=== PATIENT | male | born 1940 | race Caucasian/White ===

== ENCOUNTER 2024-05-11 21:57 | Inpatient (IN) | payer OTHER, SELFPAY ==
[2024-05-11] VITALS (7 sets, daily range): BP systolic 90–179; BP diastolic 74–93; BMI 29.5
[2024-05-11 17:02] LABS: % Basophils 0.6 % (0-2); % Eosinophils 1.8 % (0-6); % Immature Granulocytes 0.8 % (0-0.5); % Lymphocytes 27.3 % (20.5-51.1); % Monocytes 12.7 % (1.7-9.3); % Neutrophils 56.8 % (42.2-75.2); Absolute Basophils 0.1 10^3/uL (0-0.2); Absolute Eosinophils 0.2 10^3/uL (0-0.7); Absolute Immature Granulocytes 0.1 10^3/uL (0-0.05); Absolute Lymphocytes 2.3 10^3/uL (1.2-3.4); Absolute Monocytes 1.1 10^3/uL (0.1-0.6); Absolute Neutrophils 4.8 10^3/uL (1.4-6.5); Mean Corp Hgb Conc. 34.2 g/dL (33.0-37.0); Mean Corpuscular Hgb 32.9 pg (27.0-31.0); Mean Corpuscular Volume 96.2 fL (80.0-94.0); Mean Platelet Volume 9.6 fL (7.4-10.4); Nucleated Red Blood Cells % 0 % (-); Platelet Count 263 10^3/uL (130-400); Red Blood Cell Count 3.95 10^6/uL (4.70-6.10); Red Cell Dist. Width 14.7 % (11.5-14.5); White Blood Cell Count 8.5 10^3/uL (4.8-10.8)
[2024-05-11 17:17] LABS: ALT (SGPT) 15 U/L (0-50); AST (SGOT) 25 U/L (17-59); Albumin 3.9 g/dl (3.5-5.0); Alkaline Phosphatase 50 U/L (38-126); Blood Urea Nitrogen 16 mg/dl (9-20); Calcium 9.7 mg/dl (8.4-10.2); Carbon Dioxide 24 mmol/L (22-30); Chloride 104 mmol/L (98-107); Glucose 132 mg/dl (70-99); Potassium 4.6 mmol/L (3.5-5.1); Sodium 136 mmol/L (135-145); Total Bilirubin 0.7 mg/dl (0.2-1.3); Total Protein 6.2 g/dl (6.3-8.2); eGFR > 60.00
[2024-05-11 17:28] LABS: NT-proBNP 2930 pg/ml; Troponin I 0.016 ng/ml
--- NOTE | 2024-05-11 18:53 | ED.GENMED ---
History of Present Illness
General
Chief Complaint: Breathing Problem
Source: patient, records, spouse, previous radiology exam and previous hospital records
Exam Limitations: none
Time Seen by Provider: 05/11/24 18:35
Nursing documentation reviewed up to this point in time: agreed with
History of Present Illness
History of Present Illness:
83-year-old male status post bypass surgery status post aortic valve replacement, tissue valve, not on blood thinners, COPD by spirometry, uses an inhaler, presents with a month or so of progressive shortness of breath dyspnea on exertion no fever
has had lower extremity edema states he takes a diuretic but he is unsure of the name or the dose no fever no hemoptysis no nausea or vomiting
Past History
Past History
ED Past Medical History: CAD, HTN, Hypercholesterolemia and Valvular disease
ED Past Surgical History: Appendectomy, Cardiac and Other (Right carotid endarterectomy, bilateral inguinal herniorrhaphies )
Social History
Tobacco: Non-smoker
Alcohol: Occasional
Drug: None
Personal: Partner
Living: with family
Employment: Retired
Family History
Family History: Diabetes
Review of Systems
Review of Systems
All Other Systems: Not applicable
Constitutional: Denies fever or fatigue
EENT: Reports no symptoms
Respiratory: Reports cough and trouble breathing
Cardiac: Denies chest pain
ABD/GI: Reports no symptoms
: Reports no symptoms
Musculoskeletal: Reports no symptoms
Neurological: Reports no symptoms
Endocrine: Reports no symptoms
Phy Exam
Physical Exam
Physical Exam:
Physical Exam
General: Dyspneic appearing male
Neck: No jaundice
Heart: regular
Lungs: Bibasilar crackles
Abdomen: Nontender
Neuro: alert and oriented. no focal neurological deficits
Skin: no rash
Psychiatric: well kept. interactive and cooperative
Extremities: Edema is present
Scores
Heart Failure Risk
Heart Failure Risk Score: Yes
History of Stroke or TIA: Yes
History of intubation for respiratory distress: No
Heart rate on ED arrival >/= 110: No
SaO2 <90% on arrival on room air: No
HR >/=110 during 3min walk test (or too ill to perform test): Yes
ECG has acute ischemic changes: No
Urea >/=12mmol/L (BUN 33.6mg/dL): No
Serum CO2>/=35mmol/L: No
Troponin I or T elevated to GA Level (0.4mg/dL): No
NT-proBNP >/=5,000ng/L (5,000pg/ml): No
HF Risk Score: 3
Admission Status: HIGH RISK 15.9% Consider SNF treatment or admission to hospital
Course
Orders/Labs/Results
Orders:
Orders
05/11/24 16:34
Electrocardiogram (*1) Urgent
Reason for Study: Other
Other Reason for Exam: Respiratory Distress
EKG- Treatment ONCE
CR Chest - 2 Views Urgent
Comment:
Reason For Exam: respiratory distress
05/11/24 16:50
Complete Blood Count/With Diff Urgent
Comprehensive Metabolic Panel Urgent
NT-proBNP Urgent
Troponin I Urgent
05/11/24 20:45
Furosemide [Lasix] 60 mg IV NOW STA
Ipratropium/Albuterol Sulfate [Duoneb] 3 ml INH R NOW STA
Abnormal Lab Results
05/11/24
16:50
RBC 3.95 L 10^6/uL
(4.70-6.10)
Hct 38.0 L %
(39.0-52.0)
MCV 96.2 H fL
(80.0-94.0)
MCH 32.9 H pg
(27.0-31.0)
RDW 14.7 H %
(11.5-14.5)
Abs Immat Gran (auto) 0.1 H 10^3/uL
(0-0.05)
Absolute Monos (auto) 1.1 H 10^3/uL
(0.1-0.6)
Immature Gran % 0.8 H %
(0-0.5)
Monocytes % 12.7 H %
(1.7-9.3)
Glucose 132 H mg/dl
(70-99)
Total Protein 6.2 L g/dl
(6.3-8.2)
05/11/24 16:50
05/11/24 16:50
Vital Signs
Initial and Last Documented VS:
Initial Vital Signs
Temp Pulse Resp BP Pulse Ox
98.3 F 57 20 165/79 94
05/11/24 16:30 05/11/24 16:30 05/11/24 16:30 05/11/24 16:30 05/11/24 16:30
Last Documented Vital Signs
Temp Pulse Resp BP Pulse Ox
98.3 F 62 21 90/74 97
05/11/24 16:30 05/11/24 20:30 05/11/24 20:30 05/11/24 20:00 05/11/24 20:30
MDM/Problems Addressed
Differential Diagnosis Includes:
Heart failure pneumonia pleural effusion COPD less likely PE unit with
MDM/Problems Addressed:
Shortness of breath
Chronic conditions affecting care: CAD and COPD
Acute Exacerbation and/or Progression of Chronic Illness: CAD and COPD
*Radiology
Radiology exam reviewed: preliminary read by ED provider
*Pulse Oximetry
Patient hypoxic: no
*EKG
Interpreted by ED Provider?: Yes
Interpretation: abnormal
Comparison EKG: no comparison EKG present
Heart Rate: 78
Rate: normal
Rhythm: sinus and PVC's
[place]: normal axis
Interval: normal interval
Ischemia: non-specific ST changes
*[employer] Interpretation
Rate: normal
Interpretation: normal
Heart Rate: 78
Rhythm: sinus
*Critical Care Note
Total Time (30-74mins, 75-104mins- exclusive of procedures): Not Applicable
Data Reviewed
Review of Other/Old Records Reveals: Labs, Records and Operative Reports
Source: patient and spouse
Prescriptions/Medications Considered But Not Given:
Nebs
Further Testing Considered But Not Given:
Chest CT
Update Note
Update Note:
8:45 PM update chest x-ray noted proBNP noted prior echo noted tried bed some IV Lasix
ED Attending Note
-
Portions of this chart may have been created with voice recognition software.� Occasional wrong word or��sound alike� substitutions may have occurred due to the inherent limitations of voice recognition software.
Discharge Plan
Departure
Patient Disposition: Admit
Date of Disposition: 05/11/24
Time of Disposition: 20:46
Presentation/result/management discussed w/ accepting MD/DO: Hospitalist
Patient with high blood pressure during this ER visit?: No
Condition: Fair
Discharge Problem:
Chronic obstructive pulmonary disease, Chronic dyspnea, AGUERO (dyspnea on exertion)
Prescriptions:
No Action
rosuvastatin 20 MG tablet
40 mg PO HS Qty: 0
PreserVision AREDS-2 1 EACH capsule
1 cap PO BID Qty: 0
albuterol sulfate 1 PUFF HFA aerosol inhaler
2 puff inhalation R Q4HPRN PRN (Reason: shortness of breath) Qty: 0 0RF
aspirin 81 MG tablet,delayed release (DR/EC)
81 mg PO HS
hydrochlorothiazide 25 MG tablet
12.5 mg PO Q48H
acetaminophen 325 MG tablet
650 mg PO QIDPRN PRN (Reason: pain)
carvedilol 12.5 MG tablet
12.5 mg PO BID
clopidogrel 75 MG tablet
75 mg PO DAILY
ezetimibe 10 MG tablet
10 mg PO DAILY
amlodipine 2.5 MG tablet
2.5 mg PO DAILY
Patient Comments:
on hold until after today's procedure
cholecalciferol (vitamin D3) 250 MCG capsule
125 mcg PO DAILY
omeprazole 40 mg Capsule,Delayed Release(Dr/Ec)
40 mg PO Q48H
valsartan 160 mg Tablet
160 mg PO BID
escitalopram oxalate 10 mg Tablet
10 mg PO DAILY
Dulera 200-5 mcg/actuation Hfa Aerosol Inhaler
2 puff INHALATION BID
naproxen sodium [Aleve] 220 mg capsule
440 mg PO BID PRN (Reason: Pain) Qty: 1 0RF
tramadol 50 mg tablet
50 mg PO TID PRN (Reason: severe pain) Qty: 10 0RF
doxycycline hyclate 100 mg capsule
100 mg PO BID Qty: 14 0RF
Referrals:
Allan Davis MD [Family Provider] -
Interventions
Interventions:
*Risk Screen - Suicide Last Done: 05/11/24 16:30
ED- Cardiac Assessment Last Done: 05/11/24 19:08
ED- Pulmonary Assessment Last Done: 05/11/24 19:08
Discharge Date and Time
Print Language: FRENCH
[2024-05-11] MEDS: LASIX 60 MG IV (21:03)
[2024-05-11] MEDS: DUONEB 3 ML INH (21:05)
--- NOTE | 2024-05-11 21:20 | HPS.HSE ---
Family Physician
-
Family Physician: Allan Davis
Chief Complaint
-
Shortness of breath
History of Present Illness
This is a 83-year-old with past medical history of CAD status post CABG and multiple stents, history of carotid stenosis status post TIAs and carotid endarterectomy, hypertension, aortic stenosis status post aortic valve replacement with
bioprosthetic valve about 8 years ago, former smoker and diagnosed with COPD on inhalers presents to the emergency department with shortness of breath at rest.
Patient reported that about 4 weeks ago he had returned from a cruise where he developed bronchitis and had a chronic cough for several weeks. He states that the cough appeared to resolve and then over the last 1 week has had more shortness of
breath and a nonproductive cough. He denies feeling any fevers or chills. He reports that he is getting the shortness of breath at rest today and that is why he called his physician. He denied having any chest pain. He denied having
palpitations. He denies any sick contacts.
Patient reports that his feet feel tight and suspects that he is has more increased lower extremity swelling compared to prior. He does know of any acute weight changes. He stated that he has been continuously using his inhaler without any
significant benefit at home.
He denies feeling lightheaded or dizzy.
Reports compliance with his home medications.
In the emergency department his blood pressure was around 115/74, pulse was 56 and he was satting at 96% on room air. Temperature was 98.3. ECG shows sinus bradycardia with a rate of 56 and occasional PVC without any acute ST or T wave changes.
Troponin was 0.016. BNP was elevated at 2930. No priors available.
Chest x-ray is unchanged from prior and shows no acute infiltrates pleural effusion or consolidation.
Medical History
Past Medical History
Past Medical History: Reports CAD (Status post PR, status post CABG, status post several stents, last PCI in 2022 with patent vein graft), COPD (Not on home O2), CVA (TIA, status post carotid endarterectomy), GERD, HTN, Valvular Disease (Aortic
stenosis status post bioprosthetic aortic valve replacement 8 years ago, nonrheumatic mitral regurgitation) and Other (Macular degeneration, peripheral arterial disease)
Past Surgical History: Reports Orthopedic (Hip surgery, back surgery), Urological (Robotic partial prostatectomy 2022) and Other (Right inguinal repair)
Social History
Tobacco: Former Smoker
Alcohol: Occasional
Drug: None
Personal: Partner
Living: With Family
Employment: Retired
Family History
Family History: Not pertinent
Allergies / Home Medications
Allergies reflects when Allergies were last updated in [employer].
Home Medications with original date entered in [employer]
Allergy/Medication List:
Allergies
Allergy/AdvReac Type Severity Reaction Status Date / Time
Penicillins Allergy Rash Verified 05/11/24 16:29
Home Medications
rosuvastatin 20 mg tablet 40 mg PO HS ##0 02/27/16
vit C 250 mg-vit E 90 mg-zinc 40 mg-copper 1 [id number] capsule (PreserVision AREDS-2) 1 cap PO BID ##0 03/10/16
albuterol sulfate 90 mcg/actuation aerosol inhaler 2 puff inhalation R Q4HPRN PRN shortness of breath ##0 03/12/16
acetaminophen 325 mg tablet 650 mg PO Q6HPRN PRN mild pain 04/16/17
aspirin 81 mg tablet,delayed release 81 mg PO HS 04/16/17
amlodipine 2.5 mg tablet 2.5 mg PO DAILY 06/01/20
carvedilol 12.5 mg tablet 12.5 mg PO BID 06/01/20
clopidogrel 75 mg tablet 75 mg PO DAILY 06/01/20
ezetimibe 10 mg tablet 10 mg PO DAILY 06/01/20
escitalopram oxalate 10 mg tablet 10 mg PO HS 07/14/22
mometasone-formoterol HFA 200 mcg-5 mcg/actuation aerosol inhaler (Dulera) 2 puff inhalation R BID 07/14/22
omeprazole 40 mg capsule,delayed release 40 mg PO DAILYPRN PRN heartburn 07/14/22
valsartan 160 mg tablet 160 mg PO BID 07/14/22
chlorhexidine gluconate 0.12 % mouthwash 15 ml buccal BID 05/11/24
cholecalciferol (vitamin D3) 25 mcg (1,000 unit) tablet (Vitamin D3) 25 mcg PO DAILY 05/11/24
hydrochlorothiazide 12.5 mg tablet 12.5 mg PO Q48H 05/11/24
methocarbamol 750 mg tablet 750 mg PO DAILYPRN PRN muscle spasms 05/11/24
Review of Systems
-
History Source: Patient
Constitutional: Reports No Symptoms
EENT: Reports No Symptoms
Respiratory: Reports Cough and Trouble Breathing
Cardiac: Reports No Symptoms
Abdomen/GI: Reports No Symptoms
: Reports No Symptoms
Musculoskeletal: Reports No Symptoms
Skin: Reports No Symptoms
Neurological: Reports No Symptoms
Endocrine: Reports No Symptoms
Hematologic/Lymphatic: Reports No Symptoms
Psych: Reports No Symptoms
Physical Exam
Vital Signs
Vital Signs
Temp Pulse Resp BP Pulse Ox
98.3 F 67 18 115/93 96
05/11/24 16:30 05/11/24 21:03 05/11/24 21:03 05/11/24 21:03 05/11/24 20:45
Physical Exam
General: Well Developed, Well Nourished, Comfortable and Conversant
HEENT: NormoCephalic, Anicteric, Moist mucous membranes and Atraumatic
Respiratory: Clear and Non Labored Respirations
Cardiac: S1/S2 and Regular Rhythm
Breast: Deferred by me
GI: Soft, Non Tender, Non Distended and Normal Bowel Sounds
Rectal: Deferred by Provider
Genito-urinary: Deferred by me
Musculoskeletal: No Clubbing, No Cyanosis, Edema, Left Lower Extremity (1 +), Edema, Right Lower Extremity (1+) and No Edema
Skin: Warm
Neuro: AO x 3 and Nonfocal/grossly intact
Hematologic/Lymphatic: No Lymphadenopathy
Psych: Calm
Laboratory Results
-
05/11/24 16:50
05/11/24 16:50
Laboratory Results
Total Bilirubin 0.7 mg/dl (0.2-1.3) 05/11/24 16:50
AST 25 U/L (17-59) 05/11/24 16:50
ALT 15 U/L (0-50) 05/11/24 16:50
Alkaline Phosphatase 50 U/L (38-126) 05/11/24 16:50
Troponin I 0.016 ng/ml 05/11/24 16:50
Data Reviewed
-
Diagnostic Radiology: Image Personally Visualized and interpreted
Medical Tests (Nuc Med, Echo, EKG etc): Image Personally Visualized and interpreted
Lab Data: Labs Reviewed by me
Old Records: Reviewed
Impression/Plan
-
IMPRESSION:
83-year-old with past medical history of CAD status post CABG and stenting, aortic stenosis status post valve replacement, mitral regurg, hyperlipidemia, hypertension, COPD not on home O2, on aspirin Plavix at home presents to the emergency
department with 1 week of worsening shortness of breath and severe shortness of breath today. His chest x-ray is clear. On my examination there are no wheezes. He is afebrile. CBC and electrolytes are within the normal range. ECG shows no
ischemia and troponin is negative. BNP is elevated at 2900. He has bilateral lower extremity swelling. Etiology of dyspnea includes new onset CHF but has no pulmonary edema or hypoxia on exam. Worsening valvular insufficiency versus ischemia.
Will need to rule out pulmonary etiology. No evidence of COPD at this time.
PLAN:
1. Shortness of breath -suspect new onset CHF with elevated BNP and pedal edema. However patient shows no pulmonary edema. There is mild JVD elevation. There is no new ischemia on history, ECG or troponin.
- admit to telemetry
- check covid, influenza, d-dimer
- check vbg
- start lasix 40mg iv q12, hold hctz
- daily weights and i/os
- echo in am
- continue coreg, will hold amlodipine for now
- continue valsartan with hold parameters
- cardiology consult
2. COPD - No evidence of acute exacerbation
- continue home nebs with prn duonebs
- hold off on steroids
- abg as above
3. CAD - possible angina equivalent but negative trop
- telemetry
- continue aspirin plavix
- continue statin
DVT PPX - lovenox sq
Code status - DNR
[2024-05-11 21:33] LABS: Venous Blood Gas B.E. -0.7 mmol/L (-4 to +4); Venous Blood Gas HCO3 23.4 mmol/L (22-27); Venous Blood Gas pCO2 36 mmHg (35-48); Venous Blood Gas pH 7.42 (7.32-7.43); Venous Blood Gas pO2 158 mmHg (30-50)
[2024-05-11 21:50] LABS: D-Dimer 0.69 ug/mlFEU (0.00-0.50)
[2024-05-11 21:52] LABS: COVID-19 Antigen Negative (Negative)
[2024-05-11 22:11] LABS: Procalcitonin < 0.05 ng/ml (0.0-0.25)
--- NOTE | 2024-05-11 22:45 | PTCARENOTE ---
Pt admitted to 2250 from ED. Ambulated with standby assist to bed. AAOx3, SB with PVCs on telemetry. Denies complaints of SOB or pain. Using urinal to void. Call guerrero within reach.
[2024-05-11] MEDS: ASPIR LOW (ENTERIC COATED) 81 MG PO (23:27)
[2024-05-11] MEDS: CRESTOR 40 MG PO (23:27)
[2024-05-11] MEDS: LEXAPRO 10 MG PO (23:27)
[2024-05-12] VITALS (11 sets, daily range): BP systolic 118–180; BP diastolic 61–109; BMI 29.2
[2024-05-12 03:53] LABS: Blood Urea Nitrogen 15 mg/dl (9-20); Calcium 9.8 mg/dl (8.4-10.2); Carbon Dioxide 25 mmol/L (22-30); Chloride 101 mmol/L (98-107); Estimated Creatinine Clearance 71 ml/min; Glucose 98 mg/dl (70-99); HDL Cholesterol 51 mg/dl; LDL Cholesterol, Calculated 58 mg/dl; Magnesium 2.1 mg/dl (1.6-2.3); Potassium 3.8 mmol/L (3.5-5.1); Sodium 135 mmol/L (135-145); Total Cholesterol 123 mg/dl (50-199); Triglyceride 71 mg/dl (10-149); Very Low Density Lipoprotein 14 mg/dl (0-30); eGFR > 60.00
[2024-05-12 04:22] LABS: TSH Reflex To Free T4 2.63 uIU/ml (0.47-4.68)
[2024-05-12] MEDS: DIOVAN 160 MG PO ×2 (06:16→21:31)
--- NOTE | 2024-05-12 06:20 | PTCARENOTE ---
Pt elevated 180/109, HR manuel 39-50s.. MANAGER GOLF notified and ok to give Valsartan early .
[2024-05-12] MEDS: SYMBICORT 160/4.5 MCG INHALER 2 PUFF INH ×2 (07:23→19:19)
--- NOTE | 2024-05-12 08:06 | W.PN.HOSP.TC ---
Today's Communication/Plan
-
See PN
Assessment / Plan
Assessment / Plan
83yo M with PMHx of HTN, CAD, biprosthetic AV, COPD, anxiety, HLD, GERD came with 1 week of progressive LE swelling and SOB on exertion, managed for CHF exacerbation due to recent acute upper respiratory infection that is currently resolved
A/P:
#Acute on chronic HFpEF exacerbation
#Bioprosthetic AV
#Frequent PVCs
LAsix, daily weight, I&O, follow Cr and Electrolytes
Echo
Cardio consult
Chest XR without acute finsings
CT chest reading pending, but ddimer<age-adjusted WLN
Check LE US 2/2 swelling
#Mild macrocytosis
check B12, folate
#COPD not in exacerbation
#HLD
#Anxiety d/o
COnt home meds
DVT ppx lovenox
DNR/DNI
I have spent at least 58min reviewing chart, test results, communication with consultants and providing direct patient care
Anticipated Discharge: > 48 hours
Subjective/Interval History
-
Date of Service: May 12, 2024
Objective Data
-
Labs:
Laboratory Results
05/12/24
03:06
Sodium 135
Potassium 3.8
Chloride 101
Carbon Dioxide 25
BUN 15
Creatinine 0.8
Glucose 98
Calcium 9.8
Vital Signs:
Vital Signs
Temp Pulse Resp BP Pulse Ox
98 F 77 16 180/109 99
05/12/24 07:21 05/12/24 07:26 05/12/24 07:26 05/12/24 06:08 05/12/24 07:26
I&O
05/11/24 05/12/24 05/13/24
06:59 06:59 06:59
Output Total 2975 / 2975
Balance -2975 / -2975
Review of Systems
-
History Source: Patient
All other systems: Reviewed and negative
Respiratory: Reports Trouble Breathing
Physical Exam
-
General: Comfortable
HEENT: Normocephalic
Respiratory: Clear to Auscultation
Cardiac: Irregular Rhythm
GI: Soft, Nontender and Nondistended
Musculoskeletal: No Clubbing, No Cyanosis, Edema, Right Lower Extrem and Edema, Left Lower Extrem
Skin: Warm
Neuro: Awake, Alert, Oriented and AO x 3
Psych: Calm
--- NOTE | 2024-05-12 08:08 | CON.CAR ---
Addendum entered and electronically signed by Bashir Squires MD 05/12/24 09:50:
83 yo male with PMH of CAD s/p CABG and also bio-AVR 2014 is admitted with progressive SOB, edema. He feels better after IV lasix. Exam with RRR, no murmurs, 1+ LE edema. Cr 0.8. Tele: SB, PVC's.
Acute HF, new, type unknown.
-severe, requiring hospitalization
-check echo
-continue IV lasix with close monitoring of labs, tele, weight
-case mgmt c/s for SGLT2i
Original Note:
Consultation
Consultation Request
Date/Time Consultation Requested: 05/11/242331
Date/Time Consultation Performed: 05/11/24 0809
Requesting Provider: Dr. Ho
Performing Provider: Roya SCHMIDT for Dr. Squires
Reason for Consultation: SOB
Medical History
-
Chief Complaint: SOB
History of Present Illness:
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
who is here for SOB. Briefly, he had a URI about 1 month ago, but that cleared up. Then, for the past week, he has felt SOB and nothing made it better or worse. He reports chronic LE edema, but did not notice it being worse. He also denies any
weight gain. He received a dose of IV Lasix and is feeling improved (SOB and edema better).
Past Medical History
Past Medical History: CAD, COPD, GERD, HTN, Hypercholesterolemia, Valvular Disease and Other (as above)
Social History
Tobacco: Former Smoker
Family History
Family History: Reviewed & Not Pertinent
Allergies / Home Medications
Allergy/AdvReac Type Severity Reaction Status Date / Time
Penicillins Allergy Rash Verified 05/11/24 16:29
�Medication �Instructions �Recorded �Confirmed �Type
rosuvastatin 20 mg tablet 40 mg PO HS ##0 02/27/16 05/12/24 History
vit C 250 mg-vit E 90 mg-zinc 40 1 cap PO BID ##0 03/10/16 05/11/24 History
mg-copper 1 [id number]
capsule (PreserVision AREDS-2)
albuterol sulfate 90 mcg/actuation 2 puff inhalation R Q4HPRN PRN 03/12/16 05/11/24 Rx
aerosol inhaler shortness of breath ##0
acetaminophen 325 mg tablet 650 mg PO Q6HPRN PRN mild pain 04/16/17 05/11/24 History
aspirin 81 mg tablet,delayed 81 mg PO HS 04/16/17 05/11/24 History
release
amlodipine 2.5 mg tablet 2.5 mg PO DAILY 06/01/20 05/11/24 History
carvedilol 12.5 mg tablet 12.5 mg PO BID 06/01/20 05/11/24 History
clopidogrel 75 mg tablet 75 mg PO DAILY 06/01/20 05/11/24 History
ezetimibe 10 mg tablet 10 mg PO DAILY 06/01/20 05/12/24 History
escitalopram oxalate 10 mg tablet 10 mg PO HS 07/14/22 05/11/24 History
mometasone-formoterol HFA 200 2 puff inhalation R BID 07/14/22 05/11/24 History
mcg-5 mcg/actuation aerosol
inhaler (Dulera)
omeprazole 40 mg capsule,delayed 40 mg PO DAILYPRN PRN heartburn 07/14/22 05/11/24 History
release
valsartan 160 mg tablet 160 mg PO BID 07/14/22 05/12/24 History
chlorhexidine gluconate 0.12 % 15 ml buccal BID 05/11/24 05/11/24 History
mouthwash
cholecalciferol (vitamin D3) 25 25 mcg PO DAILY 05/11/24 05/11/24 History
mcg (1,000 unit) tablet (Vitamin
D3)
hydrochlorothiazide 12.5 mg tablet 12.5 mg PO Q48H 05/11/24 05/11/24 History
methocarbamol 750 mg tablet 750 mg PO DAILYPRN PRN muscle 05/11/24 05/11/24 History
spasms
Review of Systems
-
History Source: Patient
All other systems: Negative unless noted
Respiratory: Trouble Breathing
Musculoskeletal: Edema
Physical Exam
Vital Signs
Temp Pulse Resp BP Pulse Ox
98 F 77 16 180/109 99
05/12/24 07:21 05/12/24 07:26 05/12/24 07:26 05/12/24 06:08 05/12/24 07:26
Lab Results
05/11/24 16:50
05/12/24 03:06
Troponin I 0.016 ng/ml 05/11/24 16:50
Iga-V-Zvtcmgzqlos Pept 2930 pg/ml 05/11/24 16:50
Physical Exam
General: Well Developed, Well Nourished and No Apparent Distress
HEENT: Normocephalic and Anicteric
Respiratory: Clear and Non Labored Respirations
Cardiac: Regular Rhythm (SB) and Peripheral Edema (mild BLE edema)
Musculoskeletal: Edema
Skin: Warm and Dry
Neuro: AO x 3
Psych: Calm
Impression / Plan
-
SOB:
-CT scan with no PE, dilated aorta up to 4.2 cm, bibasilar atelectasis, glass opacities and centrilobular nodules within the lower lobes (R > L)- w/u management of this per primary team. However, he does feel much better after IV lasix and CHF
assessment as below.
Acute HFpEF:
-BNP elevated, LE edema noted
-update echo
-breathing and edema improved with IV lasix, will continue today- likely transition to PO tomorrow as he does not appear massively overloaded to my assessment
-IV lasix requires intensive monitoring
CAD with hx CAB/stenting:
-no return of his typical angina. EKG and trop stable.
-continue ASA, statin, BB
Bio AVR:
-update echo
HTN:
-elevated this AM
-continue Coreg, valsartan. Resume amlodipine. HCTZ stopped now that lasix on board.
Data Reviewed
-
EKG: Tracing Personally Visualized and interpreted (SB with PVC 56 BPM)
Radiology: Report Reviewed by me (CXR: No evidence of active cardiopulmonary disease.)
Medical Tests (Nuc Med, Echo etc): Report Reviewed by me (Echo 01/02/23: EF 55-60%. Mild to moderate concentric left ventricular hypertrophy. Well-seated bioprosthetic aortic valve replacement with peak and mean gradients of 17 and 8 mmHg,
respectively. PAP 22mmHG. Mildly dilated ascending aorta 4.1 cm. )
Labs: Labs Reviewed by me
--- NOTE | 2024-05-12 08:13 | PTCARENOTE ---
Rec'd Pt A,A+Ox3, denies pain. Pt states he is 'feeling better', denies SOB now. Pleasant and cooperative.
[2024-05-12] MEDS: ZETIA 10 MG PO (08:19)
[2024-05-12] MEDS: PLAVIX 75 MG PO (08:19)
[2024-05-12] MEDS: COREG 12.5 MG PO (08:40)
[2024-05-12] MEDS: LASIX 40 MG IV ×2 (09:46→15:56)
[2024-05-12] MEDS: KCL 20 MEQ PO (09:52)
[2024-05-12] MEDS: NORVASC 2.5 MG PO (09:52)
[2024-05-12] MEDS: VIBRAMYCIN 100 MG PO ×2 (11:54→21:19)
[2024-05-12] MEDS: ROCEPHIN 1000 MG IV (11:54)
[2024-05-12] MEDS: STERILE WATER FOR INJECTION 10 ML IV (11:55)
[2024-05-12 12:10] LABS: Folate 9.7 ng/ml (2.76-20)
--- NOTE | 2024-05-12 12:55 | CM ---
Reviewed chart. Met with Mr. Mcgregor to review discharge plans. He states prior to admission he resides with his significant other in a two story home without any steps to enter. He states his master suite is on the first floor. He states prior to
admission he is independent with ambulation in the home and uses a single point cane in the community. He states he has a single point cane at home. He states he has had [facility] in the past. He states he has a prescription plan with [facility]
and uses [facility]. Telephone call to [facility] to check on co-pay for Farxiga and Jardiance. His co-pay for Jardiance 10 mg would be $420.19 for 90 day mail order and $153.00 for a month supply at retail drug store. Farxiga 10 mg co-pay
would be $401.03 for a 90 day supply mail order and $143.90 for a month supply. Reviewed co-pay with him. Will need to see his current functional level to see if he will have any skilled care needs. Medical work-up in progress. The discharge plan
is to return home with her significant other and [facility] if he is agreeable and indicated when medically stable.
[2024-05-12 14:04] LABS: Vitamin B12 760 pg/ml (239-931)
[2024-05-12] MEDS: LOVENOX 40 MG SC (18:12)
--- NOTE | 2024-05-12 18:33 | PTCARENOTE ---
Pt to transfer to room 409, report called to RN, Julissa, on
[2024-05-12] MEDS: COREG PO (21:00)
[2024-05-12] MEDS: CRESTOR 40 MG PO (21:19)
[2024-05-12] MEDS: ASPIR LOW (ENTERIC COATED) 81 MG PO (21:19)
[2024-05-12] MEDS: LEXAPRO 10 MG PO (21:19)
[2024-05-13 03:37] VITALS: BP 123/67
[2024-05-13 06:00] VITALS: BMI 28.6
[2024-05-13 07:12] LABS: Blood Urea Nitrogen 21 mg/dl (9-20); Calcium 10.4 mg/dl (8.4-10.2); Carbon Dioxide 28 mmol/L (22-30); Chloride 101 mmol/L (98-107); Estimated Creatinine Clearance 57 ml/min; Glucose 99 mg/dl (70-99); Potassium 3.9 mmol/L (3.5-5.1); Sodium 136 mmol/L (135-145); eGFR > 60.00
[2024-05-13] MEDS: SYMBICORT 160/4.5 MCG INHALER 2 PUFF INH (07:32)
[2024-05-13 07:43] VITALS: BP 183/86
[2024-05-13] MEDS: PLAVIX 75 MG PO (08:59)
[2024-05-13] MEDS: COREG 12.5 MG PO (08:59)
[2024-05-13] MEDS: ZETIA 10 MG PO (08:59)
[2024-05-13] MEDS: DIOVAN 160 MG PO (08:59)
[2024-05-13] MEDS: VIBRAMYCIN 100 MG PO (08:59)
[2024-05-13] MEDS: STERILE WATER FOR INJECTION 10 ML IV (09:00)
[2024-05-13] MEDS: ROCEPHIN 1000 MG IV (09:00)
[2024-05-13] MEDS: LASIX 40 MG IV (09:00)
[2024-05-13] MEDS: NORVASC 2.5 MG PO (09:00)
--- NOTE | 2024-05-13 09:46 | W.PN.HOSP.TC ---
Today's Communication/Plan
-
PT/OT and d/c depending on recomnedations
Assessment / Plan
Assessment / Plan
83yo M with PMHx of HTN, CAD, biprosthetic AV, COPD, anxiety, HLD, GERD came with 1 week of progressive LE swelling and SOB on exertion, managed for CHF exacerbation due to recent acute upper respiratory infection that is currently resolved.
Improved on IV diuresis, started n oral lasix as per cardio and will have to follow up in the clinic. WHithout fevers and leukocytosis, reasonable short course of Cefuroxime/doxy for CT findings of pneumonia.
A/P:
#Acute on chronic HFpEF exacerbation
#Bioprosthetic AV
#Frequent PVCs
#Aortic root dilation 4.2cm
LAsix, daily weight, I&O, follow Cr and Electrolytes
Echo: EF 55-60% without changes from 2022
Cardio consult
Check LE US neg for DVT
#Pneumonia on CT
Abx
#Mild macrocytosis
B12, folate WNL
#COPD not in exacerbation
#HLD
#Anxiety d/o
COnt home meds
DVT ppx lovenox
DNR/DNI
I have spent at least 38min reviewing chart, test results, communication with consultants and providing direct patient care
Anticipated Discharge: Within 24 hours
Subjective/Interval History
-
Date of Service: May 13, 2024
Objective Data
-
Labs:
Laboratory Results
05/13/24
06:29
Sodium 136
Potassium 3.9
Chloride 101
Carbon Dioxide 28
BUN 21 H
Creatinine 1.0
Glucose 99
Calcium 10.4 H
Vital Signs:
Vital Signs
Temp Pulse Resp BP Pulse Ox
97.9 F 60 18 183/86 94
05/13/24 07:43 05/13/24 07:43 05/13/24 07:43 05/13/24 07:43 05/13/24 07:43
I&O
05/12/24 05/13/24 05/14/24
06:59 06:59 06:59
Intake Total 600 / 600
Output Total 2975 / 2975 1525 / 1525
Balance -2975 / -2975 -925 / -925
Review of Systems
-
History Source: Patient
All other systems: Reviewed and negative
Physical Exam
-
General: No Apparent Distress and Comfortable
HEENT: Normocephalic
Respiratory: Clear to Auscultation
Musculoskeletal: No Clubbing, No Cyanosis and No Edema
Neuro: Awake, Alert and Oriented
Psych: Calm
--- NOTE | 2024-05-13 09:46 | W.PN.CD ---
Today's Communication / Plan
-
transition to lasix 40mg PO daily tomorrow
-BMP in one week
-stop HCTZ
we will arrange follow up with us
please call us back with additional questions
Impression / Plan
-
Acute HFpEF: new
-improved s/p IV lasix
-copay high for SGLT2i
-transition to lasix 40mg PO daily tomorrow
-BMP in one week
-stop HCTZ
CAD with hx CAB/stenting:
-no return of his typical angina. EKG and trop stable.
-continue ASA, statin, BB
Bio AVR:
-stable on echo: EF 55-60%, bio-AVR (06/09, no AR), Asc Ao 4.2 cm
Mildly dilated ascending aorta
-stable on echo and CT
HTN:
-seems to be elevated in AM, then trends down after meds
-continue Coreg, valsartan. Resumed amlodipine. HCTZ stopped now that lasix on board.
Physical Exam
Vital Signs/Labs
Vital Signs
Temp Pulse Resp BP Pulse Ox
97.9 F 60 18 183/86 94
05/13/24 07:43 05/13/24 07:43 05/13/24 07:43 05/13/24 07:43 05/13/24 07:43
05/12/24 05/13/24 05/14/24
06:59 06:59 06:59
Actual Weight 89.584 kg 87.742 kg
05/11/24 16:50
05/13/24 06:29
Magnesium 2.0 mg/dl (1.6-2.3) 05/13/24 06:29
Triglycerides 71 mg/dl (10-149) 05/12/24 03:06
LDL Cholesterol, Calc 58 mg/dl 05/12/24 03:06
VLDL Cholesterol, Calc 14 mg/dl (0-30) 05/12/24 03:06
HDL Cholesterol 51 mg/dl 05/12/24 03:06
05/11/24
16:50
Bnk-M-Arbweckorkl Pept 2930
LAB Results
05/11/24
16:50
Troponin I 0.016
Physical Exam
Constitutional: No acute distress and Comfortable
EENT: Moist mucous membranes
Cardiovascular: Rhythm & rate is regular, JVD pressure is normal, Systolic murmur absent and Pedal edema present (trace LE edema)
Respiratory: Respiratory effort normal and Lungs clear to auscul.
Neuro/Psych: AO x 3
Data Reviewed
-
Date of Service: May 13, 2024
EKG: Other (Tele: SR/SB 50s-60s)
Labs: Labs Reviewed by me
[2024-05-13 11:40] VITALS: BP 147/89
[2024-05-13 12:30] VITALS: BP 121/66; PULSE 57; O2SAT 98
--- NOTE | 2024-05-13 12:40 | W.DCSUMMARY ---
Discharge Summary
Discharge Data
Date of Admission: 05/11/24
Date of Discharge: 05/13/24
-
Pending Results: No
Hospital Course
83yo M with PMHx of HTN, CAD, biprosthetic AV, COPD, anxiety, HLD, GERD came with 1 week of progressive LE swelling and SOB on exertion, managed for CHF exacerbation due to recent acute upper respiratory infection that is currently resolved.
Improved on IV diuresis, started n oral lasix as per cardio and will have to follow up in the clinic. WHithout fevers and leukocytosis, reasonable short course of Cefuroxime/doxy for CT findings of pneumonia. Was able to ambulate without assistance
and medically stable for d/c home. BMP with PCP in 1 week advised.
I have spent at least 38min reviewing chart, test results, communication with consultants and providing direct patient care
Patient was managed for:
#Acute on chronic HFpEF exacerbation
#Bioprosthetic AV
#Frequent PVCs
#Aortic root dilation 4.2cm
#Pneumonia on CT
#Mild macrocytosis
#COPD not in exacerbation
#HLD
#Anxiety d/o
#small hiatal hernia
#Cholelithiasis
#L1 chronic compression Fx
#Diverticulosis
#Stable (since 2022) sub centimeter pulmonary nodules
Discharge Plan
-
Patient Disposition: Home (Routine Discharge)
Discharge Diagnosis/Procedures: CHF
Diet: Low Sodium
Driving Restrictions: As prior to admission
Blood Work: BMP with family doctor in 1 week
Referrals:
Allan Davis MD [Family Provider] - in less than 1 week (blood test for kidney function)
Nya Shafer CRNP [Specified Professional Personl] - 05/27/24 10:40 am
Prescriptions:
New
furosemide 40 mg Tablet
40 mg PO DAILY Qty: 30 0RF
doxycycline hyclate 100 mg Capsule
100 mg PO Q12 Qty: 6 0RF
cefuroxime axetil 500 mg tablet
500 mg PO BID Qty: 6 0RF
Continued
rosuvastatin 20 MG tablet
40 mg PO HS Qty: 0
PreserVision AREDS-2 1 EACH capsule
1 cap PO BID Qty: 0
albuterol sulfate 1 PUFF HFA aerosol inhaler
2 puff inhalation R Q4HPRN PRN (Reason: shortness of breath) Qty: 0 0RF
aspirin 81 MG tablet,delayed release (DR/EC)
81 mg PO HS
acetaminophen 325 MG tablet
650 mg PO Q6HPRN PRN (Reason: mild pain)
carvedilol 12.5 MG tablet
12.5 mg PO BID
clopidogrel 75 MG tablet
75 mg PO DAILY
ezetimibe 10 MG tablet
10 mg PO DAILY
amlodipine 2.5 MG tablet
2.5 mg PO DAILY
Patient Comments:
on hold until after today's procedure
omeprazole 40 mg Capsule,Delayed Release(Dr/Ec)
40 mg PO DAILYPRN PRN (Reason: heartburn)
valsartan 160 mg Tablet
160 mg PO BID
escitalopram oxalate 10 mg Tablet
10 mg PO HS
Dulera 200-5 mcg/actuation Hfa Aerosol Inhaler
2 puff INHALATION R BID
chlorhexidine gluconate 0.12 % Mouthwash
15 ml BUCCAL BID
cholecalciferol (vitamin D3) [Vitamin D3] 25 mcg (1,000 unit) Tablet
25 mcg PO DAILY
methocarbamol 750 mg Tablet
750 mg PO DAILYPRN PRN (Reason: muscle spasms)
Discontinued
hydrochlorothiazide 12.5 mg Tablet
12.5 mg PO Q48H
Discharge Orders:
Discharge Patient (As Directed); Ordered 05/13/24
Ordered By: Johnathan Newman
Care Plan Goals
Care Plan Goals:
Problem: Readiness for enhanced knowledge related to diagnosis and treatment plan
Goal: Understand your diagnosis and treatment plan needs, including medications if applicable.
Instructions: Know your diagnosis, underlying causes and treatment plan options, including medications if applicable. Consult with your health care team to learn about your diagnosis and treatment plan, including medications if applicable.
Discharge Date and Time
Print Language: BERMUDIAN
--- NOTE | 2024-05-13 12:54 | PTOTSP ---
Pt is able to get OOB and ambulate in hallway without an assistive device independently. He is SOB at end of walk. May benefit from home PT vs outpatient PT for improving overall endurance.
--- NOTE | 2024-05-13 13:13 | CM ---
Reviewed the chart notes and spoke with the patient at the bedside. The patient is being discharged to home today. Significant other will provide transportation home. Discussed with the patient PT recommendations. Patient plans on continuing
with [facility]. CM continues to be available to patient/family and is monitoring medical plan for needs at discharge.
Plan: Discharge to home with outpatient PT at [facility].
== END 2024-05-13 14:34 | disposition home or self-care (01) | DRG 193 ==
LOC: 4 EAST ACU 21:57
PROVIDERS: Emergency Medicine; ADMITTING PHYSICIAN Internal Medicine; ATTENDING PHYSICIAN Internal Medicine; EMERGENCY PHYSICIAN Emergency Medicine; FAMILY PHYSICIAN Family Medicine; OTHER PHYSICIAN Internal Medicine
DX: J18.9 Pneumonia, unspecified organism (principal); I50.33 Acute on chronic diastolic (congestive) heart failure; J44.0 Chronic obstructive pulmonary disease with (acute) lower respiratory infection; M48.56XA Collapsed vertebra, not elsewhere classified, lumbar region, initial encounter for fracture; I11.0 Hypertensive heart disease with heart failure; I49.3 Ventricular premature depolarization; I77.810 Thoracic aortic ectasia; D75.89 Other specified diseases of blood and blood-forming organs; F41.9 Anxiety disorder, unspecified; K44.9 Diaphragmatic hernia without obstruction or gangrene; K80.20 Calculus of gallbladder without cholecystitis without obstruction; K57.30 Diverticulosis of large intestine without perforation or abscess without bleeding; I25.10 Atherosclerotic heart disease of native coronary artery without angina pectoris; Z95.1 Presence of aortocoronary bypass graft; E78.00 Pure hypercholesterolemia, unspecified; K21.9 Gastro-esophageal reflux disease without esophagitis; I25.2 Old myocardial infarction; Z79.02 Long term (current) use of antithrombotics/antiplatelets; I08.0 Rheumatic disorders of both mitral and aortic valves; Z79.899 Other long term (current) drug therapy; Z86.73 Personal history of transient ischemic attack (TIA), and cerebral infarction without residual deficits; Z87.891 Personal history of nicotine dependence; Z88.0 Allergy status to penicillin; Z90.79 Acquired absence of other genital organ(s); Z95.3 Presence of xenogenic heart valve; Z98.61 Coronary angioplasty status; Z11.52 Encounter for screening for COVID-19
CPT/HCPCS: 71046; 71275; 80048; 80053; 80061; 82607; 82746; 82805; 83735; 83880; 84145; 84443; 84484; 85025; 85379; 87502; 87811; 93005; 93306; 93970; 94640; 96374; 97162; 99285; Q9967

== ENCOUNTER → 2024-10-13 10:36 | Outpatient (REF) | payer OTHER, SELFPAY | LOC: HWRAD 10:36 | PROVIDERS: ATTENDING PHYSICIAN Family Medicine | DX: M79.604 Pain in right leg (principal) | CPT/HCPCS: 73522; 73564 ==

== ENCOUNTER → 2024-12-05 11:24 | Outpatient (REF) | payer MEDICARE, SELFPAY | LOC: HWRAD 11:24 | PROVIDERS: ATTENDING PHYSICIAN Family Medicine | DX: G89.29 Other chronic pain (principal); M54.50 Low back pain, unspecified | CPT/HCPCS: 72110 ==